=== PATIENT | female | born 1945 | race Caucasian/White ===

== ENCOUNTER 2016-11-11 16:52 | Emergency (ER) | payer MEDICARE, OTHER ==
--- NOTE | 2016-11-11 17:15 | ED Physician Documentation ---
PD HPI LOWER EXT INJURY - Stated complaint Stated Complaint: L KNEE PX - History obtained from History obtained from: Patient - History of Present Illness PD HPI LOW EXT INJURY LOCATION: Left (She has a history of arthroscopy on the left knee previously for cartilaginous foreign bodies, that was maybe 10 years ago. Today she was getting up from the couch and suddenly had lateral joint line pain and is unable to flex the knee.) Review of Systems Constitutional: denies: Fever, Chills Cardiac: denies: Chest pain / pressure, Palpitations Respiratory: denies: Dyspnea, Cough PD PAST MEDICAL HISTORY - Past Medical History Cardiovascular: Hypertension, High cholesterol Respiratory: None Neuro: None Endocrine/Autoimmune: None Psych: Depression Musculoskeletal: None - Present Medications Home Medications: Ambulatory Orders Medication Instructions Recorded Confirmed Atorvastatin Calcium 20 mg PO DAILY #30 tablet 03/18/16 Atorvastatin [Lipitor] 20 mg 03/18/16 Bupropion HCl [Bupropion Xl] 150 mg 03/18/16 Bupropion HCl [Bupropion Xl] 150 mg PO DAILY #30 tab.er.24h 03/18/16 Cetirizine [ZyrTEC] 10 mg PO DAILY #30 tablet 03/18/16 FLUoxetine [PROzac] 20 mg PO DAILY #30 capsule 03/18/16 Fluticasone [Flonase] 1 sprays GENNY DAILY #0 bottle 03/18/16 Losartan/Hydrochlorothiazide 1 tab PO DAILY #30 tablet 03/18/16 [Losartan-Hctz 100-25 mg Tab] Naproxen 500 mg PO BID #30 tablet. 11/11/16 - Allergies Allergies/Adverse Reactions: Allergies Allergy/AdvReac Type Severity Reaction Status Date / Time No Known Drug Allergies Allergy Verified 03/18/16 12:33 PD ED PE NORMAL - Vitals Vital signs reviewed: Yes - General General: Alert and oriented X 3, No acute distress - Extremities Extremities: Other (Small effusion of the left knee, there is lateral joint line tenderness, she cannot flex the knee. Medial and lateral collateral ligaments seem normal.) - Neuro Neuro: Alert and oriented X 3, Normal speech - Psych Psych: Normal mood, Normal affect Results - Vitals Vitals: Vital Signs - 24 hr 11/11/16 11/11/16 17:13 19:10 Temperature 35.6 C L Heart Rate 73 65 Respiratory 17 16 Rate Blood Pressure 181/96 H 190/106 H O2 Saturation 96 100 Oxygen O2 Source Room air - Rads (name of study) L knee 4v Radiology: EMP read contemporaneously (Advanced L knee OA with moderate effusion and numerous loose bodies.), See rad report PD MEDICAL DECISION MAKING - ED course ED course: She has osteoarthritis and loose bodies which probably explain the inability to flex. She declined a knee brace. Will followup with orthopedics. Departure - Departure Disposition: Home, Self Care Clinical Impression: Left anterior knee pain, Loose body in joint determined by X-ray Condition: Good Record reviewed to determine appropriate education?: Yes Instructions: ED Knee Pain UKO Prescriptions: Naproxen 500 mg PO BID #30 tablet. Comments: Follow up with an orthopedist of your choosing. Return if worse. Your blood pressure was elevated today on check in to the emergency department. This does not mean that you have hypertension, it is a common phenomenon to check into the emergency department and have elevated blood pressure. I recommend that you see your primary care physician within the week to have it rechecked when you're feeling better. Discharge Date/Time: 11/11/16 19:15
--- NOTE | 2016-11-11 18:55 | XRAY Preliminary Report ---
Exam: XR Knee 4 View LT IMPRESSION: 1. Advanced left knee osteoarthritis with moderate knee effusion and numerous loose bodies throughout the joint. [facility] SITE ID: [id number]
--- NOTE | 2016-11-11 18:57 | XRAY Report ---
EXAM: Left Knee Radiography EXAM DATE: 11/11/2016 05:59 PM. CLINICAL HISTORY: Knee pain. COMPARISON: None. TECHNIQUE: 4 views. FINDINGS: Bones: Normal. No fractures or bone lesions. Joints: Tricompartmental osteophytes with medial compartment narrowing. Numerous ossific densities th roughout the joint space as well as a moderate knee effusion. Soft Tissues: Medial soft tissues surgical clips. IMPRESSION: 1. Advanced left knee osteoarthritis with moderate knee effusion and numerous loose bodies throughout the joint. TA Referring Provider Line: [phone] SITE ID: [id number]
[2016-11-11 19:23] VITALS: BP 190/106
== END 2016-11-11 19:15 | disposition home or self-care (01) ==
LOC: ED 16:52
DX: M25.562 Pain in left knee (principal); M23.42 Loose body in knee, left knee; M17.12 Unilateral primary osteoarthritis, left knee; I10 Essential (primary) hypertension
CPT/HCPCS: 99283

== ENCOUNTER 2018-07-27 14:01 | Emergency (ER) | payer MEDICARE ==
[2018-07-27 14:13] VITALS: BP 131/73
[2018-07-27] MEDS ORDERED: diphenhydrAMINE 25 MG CAPSULE PO STA (14:24)
--- NOTE | 2018-07-27 14:30 | ED Physician Documentation ---
History of Present Illness - Stated complaint Stated Complaint: ITCH/RASH OVER BODY - Chief complaint Chief Complaint: Wound - History obtained from History obtained from: Patient - History of Present Illness Timing: How many days ago (3) Pain level max: 6 Pain level now: 5 - Additonal information Additional information: Patient is a 72-year-old female who is 1 week status post a left knee replacement at [facility] in [place]. Has been on oxycodone since that time has developed a rash over her body. It is itchy. She does not have any respiratory difficulties. No changes in soaps or detergents. No new pets. She called her orthopedist who referred her to the emergency department for evaluation. She has not taken anything for the rash Review of Systems Constitutional: denies: Fever, Chills GI: denies: Vomiting Musculoskeletal: denies: Neck pain, Back pain Neurologic: denies: Headache PD PAST MEDICAL HISTORY - Past Medical History Cardiovascular: Hypertension, High cholesterol Respiratory: None Endocrine/Autoimmune: None Psych: Depression Musculoskeletal: None - Present Medications Home Medications: Ambulatory Orders Medication Instructions Recorded Confirmed Atorvastatin Calcium 20 mg PO DAILY #30 tablet 03/18/16 Atorvastatin [Lipitor] 20 mg 03/18/16 Bupropion HCl [Bupropion Xl] 150 mg 03/18/16 Bupropion HCl [Bupropion Xl] 150 mg PO DAILY #30 tab.er.24h 03/18/16 Cetirizine [ZyrTEC] 10 mg PO DAILY #30 tablet 03/18/16 FLUoxetine [PROzac] 20 mg PO DAILY #30 capsule 03/18/16 Fluticasone [Flonase] 1 sprays GENNY DAILY #0 bottle 03/18/16 Losartan/Hydrochlorothiazide 1 tab PO DAILY #30 tablet 03/18/16 [Losartan-Hctz 100-25 mg Tab] Naproxen 500 mg PO BID #30 tablet. 11/11/16 HYDROmorphone [Dilaudid] 2 mg PO Q4H PRN #20 tablet 07/27/18 - Allergies Allergies/Adverse Reactions: Allergies Allergy/AdvReac Type Severity Reaction Status Date / Time No Known Drug Allergies Allergy Verified 07/27/18 14:13 - Social History Does the pt smoke?: No Smoking Status: Never smoker PD ED PE NORMAL - Vitals Vital signs reviewed: Yes - General General: Alert and oriented X 3, No acute distress - HEENT HEENT: Moist mucous membranes - Neck Neck: Supple, no meningeal sign - Cardiac Cardiac: RRR - Respiratory Respiratory: No respiratory distress, Clear bilaterally - Derm Derm: Warm and dry - Extremities Extremities: Other (Diffuse macular papular exanthem over the entire body. 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 Discussed the case with her orthopedic surgeon who recommends changing her to hydromorphone. Will prescribe this for her and follow-up closely with her doctor. She will utilize Benadryl as needed for itching. P atient and family counseled regarding signs and symptoms for which I believe and urgent re-evaluation would be necessary. Patient with good understanding of and agreement to plan and is comfortable going home at this time This document was made in part using voice recognition software. While efforts are made to proofread this document, sound alike and grammatical errors may occur. Departure - Departure Disposition: 01 Home, Self Care Clinical Impression: Allergic reaction Qualifiers: Encounter type: initial encounter Qualified Code(s): T78.40XA - Allergy, unspecified, initial encounter Condition: Good Instructions: ED Drug React Allergic Follow-Up: Dianne Courtney MD [Primary Care Provider] - Within 1 week Prescriptions: HYDROmorphone [Dilaudid] 2 mg PO Q4H PRN #20 tablet PRN Reason: knee pain Comments: Stop this oxycodone as your appear to be having an allergic reaction to this. Discharge Date/Time: 07/27/18 15:32
== END 2018-07-27 15:32 | disposition home or self-care (01) ==
LOC: ED 14:01
DX: T78.40XA Allergy, unspecified, initial encounter (principal); Z96.652 Presence of left artificial knee joint; I10 Essential (primary) hypertension
CPT/HCPCS: 99283; A9270

== ENCOUNTER 2018-11-20 00:07 | Emergency (ER) | payer MEDICARE ==
--- NOTE | 2018-11-20 00:29 | ED Physician Documentation ---
PD HPI Fall - Stated complaint Stated Complaint: LT ANKLE INJURY,BACK PAIN - Chief complaint Chief Complaint: Ext Problem - Additional information Additional information: 73-year-old female presents the emergency department after slipping and falling down several stairs. The patient reports striking her head and upper back and reports spasm and pain associated with this. The patient denies any acute neurologic changes or sensory changes. No urinary retention. No hematuria. The patient denies lower back pain. The patient denies torso trauma or upper extremity trauma. The patient does report left ankle pain. The patient denies hip or knee pain. Symptoms are described as moderate. No other associated symptoms. 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 : None HEENT: None Psych: Depression Musculoskeletal: None Derm: None - Past Surgical History Past Surgical History: Yes Ortho: Knee replacement - Present Medications Home Medications: Ambulatory Orders Medication Instructions Recorded Confirmed Atorvastatin Calcium 20 mg PO DAILY #30 tablet 03/18/16 Atorvastatin [Lipitor] 20 mg 03/18/16 Bupropion HCl [Bupropion Xl] 150 mg 03/18/16 Bupropion HCl [Bupropion Xl] 150 mg PO DAILY #30 tab.er.24h 03/18/16 Cetirizine [ZyrTEC] 10 mg PO DAILY #30 tablet 03/18/16 FLUoxetine [PROzac] 20 mg PO DAILY #30 capsule 03/18/16 Fluticasone [Flonase] 1 sprays GENNY DAILY #0 bottle 03/18/16 Losartan/Hydrochlorothiazide 1 tab PO DAILY #30 tablet 03/18/16 [Losartan-Hctz 100-25 mg Tab] Naproxen 500 mg PO BID #30 tablet. 11/11/16 HYDROmorphone [Dilaudid] 2 mg PO Q4H PRN #20 tablet 07/27/18 diazePAM [Valium] 5 mg PO TID PRN #15 tablet 11/20/18 - Allergies Allergies/Adverse Reactions: Allergies Allergy/AdvReac Type Severity Reaction Status Date / Time hydrocodone AdvReac Rash Verified 11/20/18 01:53 - Social History Does the pt smoke?: No Smoking Status: Never smoker Does the pt drink ETOH?: Yes Does the pt have substance abuse?: No - Immunizations Immunizations are current?: Yes - POLST Patient has POLST: No PD ED PE NORMAL - General General: Alert and oriented X 3, No acute distress - HEENT HEENT: PERRL, EOMI, Ears normal. No: Atraumatic (Tender palpation on the occiput/C1, no crepitus, no hematoma or laceration) - Neck Neck: No: No bony TTP (Tender palpation at C1 the base of the skull) - Respiratory Respiratory: No respiratory distress - Derm Derm: Other (Abrasion on the left distal lower leg, no laceration) - Extremities Extremities: No: No deformity, No tenderness to palpate, Normal ROM s pain (The patient has tenderness to palpation of the left ankle with mild swelling. The patient has no tenderness of the upper extremities and no tenderness of the other joints of the lower extremities. The patient has normal pulses and normal cap refill.) - Neuro Neuro: Alert and oriented X 3, Normal speech - Psych Psych: Normal affect Results - Vitals Vitals: Vital Signs - 24 hr 11/20/18 11/20/18 11/20/18 00:19 00:28 00:47 Temperature 36.7 C Heart Rate 66 Respiratory 17 17 16 Rate Blood Pressure 172/91 H O2 Saturation 96 11/20/18 11/20/18 01:53 02:25 Temperature Heart Rate 71 Respiratory 16 17 Rate Blood Pressure 143/82 H O2 Saturation 99 Oxygen O2 Source Room air - Rads (name of study) CT head/neck Radiology: Final report received, See rad report CT T-spine Radiology: Final report received, See rad report XR ankle Radiology: Final report received, See rad report PD MEDICAL DECISION MAKING - ED course ED course: On reevaluation the patient is resting comfortably, I discussed with her the findings on her workup. I discussed with her the plan for outpatient management. The patient declined crutches and would prefer to use the walker that she has at home. The patient will follow up with orthopedics and will return to the emergency department for any worsening or any concerns. Departure - Departure Disposition: 01 Home, Self Care Clinical Impression: Closed head injury Qualifiers: Encounter type: initial encounter Qualified Code(s): S09.90XA - Unspecified injury of head, initial encounter Contusion, back Qualifiers: Encounter type: initial encounter Laterality: unspecified laterality Qualified Code(s): S20.229A - Contusion of unspecified back wall of thorax, initial en counter Closed fibular fracture Qualifiers: Encounter type: initial encounter Fibula location: distal Fracture morphology: unspecified fracture morphology Laterality: unspecified laterality Qualified Code(s): S82.839A - Other fracture of upper and lower end of unspecified fibula, initial encounter for closed fracture Condition: Good Instructions: ED Contusion Back, ED Head Injury Closed, ED Fx Ankle Lateral Malleolus Follow-Up: Dianne Courtney MD [Primary Care Provider] - Within 1 week [facility] [Provider Group] - Within 1 week (Call to schedule an appointment ) Prescriptions: diazePAM [Valium] 5 mg PO TID PRN #15 tablet PRN Reason: Spasms Comments: Please return to the emergency department for worsening symptoms or any concerns
--- NOTE | 2018-11-20 01:34 | XRAY Report ---
Reason: swelling/pain L ankle Procedure Date: 11/20/2018 Accession Number: [id number] / [id number] Procedure: XR - Ankle 3 View LT CPT Code: FULL RESULT: EXAM: LEFT ANKLE RADIOGRAPHY EXAM DATE: 11/20/2018 01:17 AM. CLINICAL HISTORY: Swelling/pain L ankle. COMPARISON: None. TECHNIQUE: 3 views. FINDINGS: Bones: Acute oblique nondisplaced fracture of the distal fibula at the level of the ankle joint. Joints: No subluxations. Soft Tissues: Soft tissue swelling IMPRESSION: Acute distal fibula fracture. [facility]
--- NOTE | 2018-11-20 01:42 | CT Report ---
Reason: fall, injury Procedure Date: 11/20/2018 Accession Number: [id number] / [id number] Procedure: CT - CERVICAL SPINE WO CPT Code: FULL RESULT: EXAM: CT CERVICAL SPINE WITHOUT CONTRAST DATE: 11/20/2018 01:26 AM. HISTORY: Fall, injury. COMPARISONS: None. TECHNIQUE: Thin-section axial images were acquired of the cervical spine without contrast. Post-processing: Coronal and sagittal reformats. Other: None. In accordance with CT protocol optimization, one or more of the following dose reduction techniques were utilized for this exam: automated exposure control, adjustment of mA and/or KV based on patient size, or use of iterative reconstructive technique. FINDINGS: Alignment: There is relative straightening of the cervical spine. Bones: There are no fractures nor subluxations. There is cervical spondylosis with degeneration of the disks C4-C7. There are small marginal osteophytes. There is no significant bony canal stenosis nor severe bony foraminal stenosis. There are degenerative changes at the facets of the cervical spine. Musculature: The soft tissues of the neck are grossly unremarkable. There is a nodule or cyst in the right lobe of the thyroid. This measures 6 mm. Other: The paravertebral and prevertebral soft tissues are unremarkable. The lung apices are clear. IMPRESSION: 1. Cervical spondylosis. 2. No evidence for fractures nor subluxations. [facility]
--- NOTE | 2018-11-20 01:47 | CT Report ---
Reason: back pain, fall Procedure Date: 11/20/2018 Accession Number: [id number] / [id number] Procedure: CT - THORACIC SPINE WO CPT Code: FULL RESULT: EXAM: CT THORACIC SPINE WITHOUT CONTRAST EXAM DATE: 11/20/2018 01:21 AM. CLINICAL HISTORY: Back pain, fall. COMPARISONS: None. TECHNIQUE: Thin-section axial images were acquired of the thoracic spine from C7 to L1 without contrast. Post-processing: Coronal and sagittal reformats. Other: None. In accordance with CT protocol optimization, one or more of the following dose reduction techniques were utilized for this exam: automated exposure control, adjustment of mA and/or KV based on patient size, or use of iterative reconstructive technique. FINDINGS: Alignment: There is mild thoracic kyphosis. Bones: There are no fractures nor subluxations of the thoracic spine. There are anteriorly bridging osteophytes from T7-T11. There is no significant bony canal stenosis. Musculature: Normal. No fatty atrophy. Other: Incidental note is made of a right posterior protrusion at the L2-L3 level. IMPRESSION: 1. No evidence for acute fractures or subluxations of the thoracic spine. 2. Anterior bridging osteophytes from T7-T11. 3. Probable right posterolateral disk protrusion L2-L3. [facility]
--- NOTE | 2018-11-20 01:49 | CT Report ---
Reason: fall, head injury Procedure Date: 11/20/2018 Accession Number: [id number] / [id number] Procedure: CT - HEAD WO CPT Code: FULL RESULT: EXAM: CT HEAD EXAM DATE: 11/20/2018 01:19 AM. CLINICAL HISTORY: Fall, head injury. COMPARISON: None. TECHNIQUE: Multiaxial CT images were obtained from the foramen magnum to the vertex. Reformats: Sagittal and coronal. IV contrast: None. In accordance with CT protocol optimization, one or more of the following dose reduction techniques were utilized for this exam: automated exposure control, adjustment of mA and/or KV based on patient size, or use of iterative reconstructive technique. FINDINGS: Parenchyma: No intraparenchymal hemorrhage. No evidence of mass, midline shift, or CT findings of infarction. Barraza-white differentiation is distinct. There is mild chronic microvascular change in the cerebral white matter bilaterally. Extraaxial Spaces: Normal for age. No subdural or epidural collections identified. Ventricles: Normal in size and position. Sinuses and Orbits: Imaged paranasal sinuses, orbits, and mastoids show no significant abnormality. Bones: No evidence of fracture or calvarial defect. Other: None. IMPRESSION: 1. No acute intracranial abnormality. 2. No skull fracture. [facility]
[2018-11-20] MEDS ORDERED: ACETAMINOPHEN 500 MG TABLET PO STA (02:02)
[2018-11-20] MEDS ORDERED: diazePAM 5 MG TABLET PO STA (02:02)
[2018-11-20] MEDS ORDERED: NAPROXEN 250 MG TABLET PO STA (02:02)
[2018-11-20 02:31] VITALS: BP 143/82
== END 2018-11-20 02:31 | disposition home or self-care (01) ==
LOC: ED 00:07
DX: S82.832A Other fracture of upper and lower end of left fibula, initial encounter for closed fracture (principal); S20.229A Contusion of unspecified back wall of thorax, initial encounter; S09.90XA Unspecified injury of head, initial encounter; W10.9XXA Fall (on) (from) unspecified stairs and steps, initial encounter; I10 Essential (primary) hypertension
CPT/HCPCS: 70450; 72125; 72128; 73610; 99283; A9270

== ENCOUNTER 2022-07-02 17:48 | Emergency (ER) | payer MEDICARE ==
[2022-07-02 18:06] VITALS: BP 135/92
[2022-07-02 18:16] LABS: BASOPHILS % (AUTO) 0.6 %; EOSINOPHILS # (AUTO) 0.3 10^3/uL (0.0-0.7); EOSINOPHILS % (AUTO) 5.3 %; HCT - HEMATOCRIT 37.1 % (37.0-47.0); HGB - HEMOGLOBIN 12.3 g/dL (12.0-16.0); LYMPHOCYTES # (AUTO) 1.4 10^3/uL (1.5-3.5); LYMPHOCYTES % (AUTO) 22.6 %; MEAN CORPUSCULAR HEMOGLOBIN 28.1 pg (27.0-31.0); MEAN CORPUSCULAR HGB CONC 33.2 g/dL (32.0-36.0); MEAN CORPUSCULAR VOLUME 84.9 fL (81.0-99.0); MEAN PLATELET VOLUME 11.3 fL (7.9-10.8); MONOCYTES # (AUTO) 0.6 10^3/uL (0.0-1.0); MONOCYTES % (AUTO) 9.4 %; NEUTROPHILS # (AUTO) 3.9 10^3/uL (1.5-6.6); NEUTROPHILS % (AUTO) 61.9 %; PLT - PLATELET COUNT 232 10^3/uL (130-450); RED BLOOD COUNT 4.37 10^6/uL (4.20-5.40); WHITE BLOOD COUNT 6.3 x10^3/uL (4.8-10.8)
--- NOTE | 2022-07-02 18:20 | ED Physician Documentation ---
History of Present Illness - Stated complaint Stated Complaint: IRREGULAR HB/SHAKY - Chief complaint Chief Complaint: Cardiac - Additonal information Additional information: 76-year-old female presents emergency department for evaluation of palpitations and tachycardia. She does have a history of paroxysmal A. fib. This is happened historically in the past 5-6 times where she develops a rapid heart rate. She was alerted by her heart watch monitor. She did have a sensation of a flutter in her chest. She also felt shaky. She states that the symptoms usually last only a few minutes or less than an hour but the symptoms persisted for about 4 hours therefore she came to the ER. By the time that she presented here she has now converted to sinus rhythm and has no further symptomatology. She denies that she was having any chest pain or shortness of air. No fainting symptoms or feeling lightheaded. Patient is a non-smoker. She does not use a CPAP machine. Has a history of hypertension and hyperlipidemia for which she takes her medications. Meds: Losartan, amlodipine, atorvastatin Review of Systems Constitutional: reports: Reviewed and negative Nose: reports: Reviewed and negative Throat: reports: Reviewed and negative Cardiac: reports: Palpitations. denies: Pedal edema, Calf pain Respiratory: reports: Reviewed and negative GI: reports: Reviewed and negative : reports: Reviewed and negative Skin: reports: Reviewed and negative PD PAST MEDICAL HISTORY - Past Medical History Cardiovascular: Hypertension, High cholesterol Respiratory: None Neuro: None Endocrine/Autoimmune: None GI: None PATIENT SERVICE COORDINATOR: None : None HEENT: None Psych: Depression Musculoskeletal: None Derm: None - Past Surgical History Past Surgical History: Yes Ortho: Knee replacement - Present Medications Home Medications: Ambulatory Orders Medication Instructions Recorded Confirmed Atorvastatin Calcium 20 mg PO DAILY #30 tablet 03/18/16 Atorvastatin [Lipitor] 20 mg 03/18/16 Cetirizine [ZyrTEC] 10 mg PO DAILY #30 tablet 03/18/16 FLUoxetine [PROzac] 20 mg PO DAILY #30 capsule 03/18/16 Fluticasone [Flonase] 1 sprays GENNY DAILY #0 bottle 03/18/16 Losartan/Hydrochlorothiazide 1 tab PO DAILY #30 tablet 03/18/16 [Losartan-Hctz 100-25 mg Tab] buPROPion HCL [Bupropion Xl] 150 mg 03/18/16 buPROPion HCL [Bupropion Xl] 150 mg PO DAILY #30 tab.er.24h 03/18/16 Naproxen 500 mg PO BID #30 tablet. 11/11/16 HYDROmorphone [Dilaudid] 2 mg PO Q4H PRN #20 tablet 07/27/18 diazePAM [Valium] 5 mg PO TID PRN #15 tablet 11/20/18 - Allergies Allergies/Adverse Reactions: Allergies Allergy/AdvReac Type Severity Reaction Status Date / Time hydrocodone AdvReac Rash Verified 07/02/22 18:51 - Social History Does the pt smoke?: No Smoking Status: Never smoker Does the pt drink ETOH?: Yes Does the pt have substance abuse?: No - Immunizations Immunizations are current?: Yes - POLST Patient has POLST: No PD ED PE NORMAL - General General: Alert and oriented X 3, No acute distress - HEENT HEENT: PERRL - Cardiac Cardiac: RRR, No murmur, Strong equal pulses, Other (Normal sinus rhythm on the monitor heart rate of 78) - Respiratory Respiratory: No respiratory distress - Abdomen Abdomen: Normal bowel sounds, Soft, Non tender - Back Back: No CVA TTP, No spinal TTP - Derm Derm: Normal color, Warm and dry, No rash - Extremities Extremities: No deformity, No tenderness to palpate, Normal ROM s pain - Neuro Neuro: Alert and oriented X 3, doctor of podiatry 2-12 intact Eye Opening: Spontaneous Motor: Obeys Commands Verbal: Oriented GCS Score: 15 Results - Vitals Vitals: Vital Signs - 24 hr 07/02/22 17:53 Temperature 36.3 C L Heart Rate 70 Respiratory 20 Rate Blood Pressure 135/92 H O2 Saturation 100 Oxygen O2 Source Room air - EKG (time done) 1755 Rate: Rate (enter#) (84) Rhythm: NSR [place]: Normal Intervals: Normal [place]. No: Prolonged QT QRS: Normal Ischemia: Normal ST segments, Q waves (V1 V2) Compare to prior EKG: Old EKG unavailable Computer interpretation: Agree with computer - Labs Labs: Laboratory Tests 07/02/22 07/02/22 07/02/22 18:08 18:08 18:08 WBC 6.3 RBC 4.37 Hgb 12.3 Hct 37.1 MCV 84.9 MCH 28.1 MCHC 33.2 RDW 15.0 Plt Count 232 MPV 11.3 H Neut # (Auto) 3.9 Lymph # (Auto) 1.4 L [place] # (Auto) 0.6 Eos # (Auto) 0.3 Baso # (Auto) 0.0 Absolute Nucleated RBC 0.00 Nucleated RBC % 0.0 Sodium 137 Potassium 4.0 Chloride 103 Carbon Dioxide 26 Anion Gap 8.0 BUN 22 H Creatinine 0.7 Estimated GFR (MDRD) 82 L Glucose 115 H Calcium 9.5 Total Bilirubin 0.4 AST 27 ALT 33 Alkaline Phosphatase 69 Troponin I High Sens 6.0 B-Natriuretic Peptide Total Protein 7.1 Albumin 4.3 Globulin 2.8 Albumin/Globulin Ratio 1.5 Lipase 35 TSH 07/02/22 07/02/22 18:08 18:08 WBC RBC Hgb Hct MCV MCH MCHC RDW Plt Count MPV Neut # (Auto) Lymph # (Auto) [place] # (Auto) Eos # (Auto) Baso # (Auto) Absolute Nucleated RBC Nucleated RBC % Sodium Potassium Chloride Carbon Dioxide Anion Gap BUN Creatinine Estimated GFR (MDRD) Glucose Calcium Total Bilirubin AST ALT Alkaline Phosphatase Troponin I High Sens B-Natriuretic Peptide 31 Total Protein Albumin Globulin Albumin/Globulin Ratio Lipase TSH 2.95 - Rads (name of study) cxr Radiology: Final report received (No acute cardiopulmonary process) PD MEDICAL DECISION MAKING - ED course Complexity details: reviewed results, re-evaluated patient, considered differential, d/w patient ED course: 76-year-old female presents emergency department for evaluation of heart palpitations and heart flutter. She has a history of paroxysmal A. fib. She noticed palpitations and her heart monitor issued her heart rate alarm registering about 150 bpm. The symptoms lasted for about 4 hours and when they did not dissipate on their own she comes here however on the drive to the hospital she found that the palpitations went away and on presentation she is in normal sinus rhythm. Here in the emergency department while obtaining labs that she has been on a monitor with no ectopy noted. Her CBC electrolytes and troponin are all essentially normal. Chest x-ray is without acute focal opacity. She appears to have paroxysmal atrial fibrillation. She has never been evaluated by avionics repair technician however and I am making the recommendation for referral to 1 to be seen for a Holter monitor and/or other appropriate testing. Emergent return precautions were discussed for worsening symptoms Departure - Departure Disposition: Home, Self Care Clinical Impression: Paroxysmal atrial fibrillation Condition: Stable Record reviewed to determine appropriate education?: Yes Instructions: Atrial Fibrillation Dc Comments: Lisa you are seen today in the emergency department because you intermittently go into atrial fibrillation. It sounds like you were in it for a little more than 4 hours this afternoon. However by the time you are presented to the emergency department you had converted to sinus rhythm. In the long-term it is important you discuss this ED visit with your primary care doctor. You would benefit from referral to a avionics repair technician. They could consider further outpatient testing such as an echocardiogram, a Holter monitor or other testing. You can continue to take your usual blood pressure medications as you are already prescribed. If at any point you develop sudden severe chest pain, have shortness of air, or have a return of the rapid heart rate that does not dissipate as you would typically expect it to then please return immediately to the ER
[2022-07-02 18:33] LABS: ALBUMIN 4.3 g/dL (3.2-5.5); ALBUMIN/GLOBULIN RATIO 1.5 (1.0-2.2); BILIRUBIN,TOTAL 0.4 mg/dL (0.2-1.0); CALCIUM 9.5 mg/dL (8.5-10.3); CREATININE 0.7 mg/dL (0.4-1.0); TOTAL PROTEIN 7.1 g/dL (6.7-8.2)
--- NOTE | 2022-07-02 18:49 | XRAY Report ---
PROCEDURE: Chest 1 View X-Ray INDICATIONS: Chest Pain TECHNIQUE: Two view(s) of the chest. COMPARISON: None. FINDINGS: Surgical changes and devices: None. Lungs and pleura: No pleural effusions or pneumothorax. Lungs are clear. Mediastinum: Mediastinal contours are normal. Heart size is normal. Bones and chest wall: No suspicious bony abnormalities. Soft tissues appear unremarkable. IMPRESSION: No acute cardiopulmonary process demonstrated radiographically. Reviewed by: Jayy Mendoza MD on 07/02/2022 6:48 PM PDT Approved by: Jayy Mendoza MD on 07/02/2022 6:48 PM PDT Station ID: [id number]
== END 2022-07-02 19:11 | disposition home or self-care (01) ==
LOC: ED 17:48
DX: I48.0 Paroxysmal atrial fibrillation (principal)
CPT/HCPCS: 36415; 80053; 83690; 83880; 84443; 84484; 85025; 93005; 99284

== ENCOUNTER 2023-01-12 19:27 | Emergency (ER) | payer MEDICARE ==
--- OUTSIDE RECORDS SUMMARY | 2023-01-12 19:42 | EXTERNAL MEDICAL SUMMARY RPT | Continuity of Care Document ---
:1945 Author Organization [facility] Address [address] [place] [address] Phone Care Team Providers Name Role Phone Unavailable Unavailable Unavailable Stretalhael Patient Registrar, Ella Unavailable Unav ailable Luisa Rn, Radha Unavailable Unavailable Allergies No information. Encounters No information. Functional Status No information. Immunizations No information. Medications date description facility 2023-01-07 00:00 cholecalciferol (vitamin d3) Walk-In [facility] 2023-01-12 00:00 cholecalciferol (vitamin d3) Walk-In [facility] 2023-01-07 00:00 amlodipine [facility] 2023-01-12 00:00 amlodipine [facility] 2023-01-07 00:00 cholecalciferol (vitamin d3) Walk-In [facility] Care [facility] Anc[facility] Services [facility] 2023-01-12 00:00 cholecalciferol (vitamin d3) Walk-In [facility] 2023-01-07 00:00 vitamin e [facility] 2023-01-12 00:00 vitamin e [facility] 2023-01-07 00:00 amlodipine [facility] 2023-01-12 00:00 amlodipine [facility] 2023-01-07 00:00 vitamin e [facility] 2023-01-12 00:00 vitamin e [facility] 2023-01-07 00:00 amlodipine [facility] 2023-01-12 00:00 amlodipine [facility] 2023-01-07 00:00 losartan [facility] 2023-01-12 00:00 losartan [facility] 2023-01-07 00:00 losartan [facility] 2023-01-12 00:00 losartan [facility] 2023-01-07 00:00 atorvastatin [facility] 2023-01-12 00:00 atorvastatin [facility] 2023-01-07 00:00 atorvastatin [facility] 2023-01-12 00:00 atorvastatin [facility] 2023-01-07 00:00 losartan [facility] 2023-01-12 00:00 losartan [facility] 2023-01-07 00:00 atorvastatin [facility] 2023-01-12 00:00 atorvastatin [facility] 2023-01-07 00:00 atorvastatin [facility] 2023-01-12 00:00 atorvastatin [facility] 2023-01-07 00:00 losartan [facility] 2023-01-12 00:00 losartan [facility] 2023-01-07 00:00 cholecalciferol (vitamin d3) [facility] 2023-01-12 00:00 cholecalciferol (vitamin d3) [facility]-In [facility] 2023-01-07 00:00 amlodipine [facility] 2023-01-12 00:00 amlodipine [facility] 2023-01-07 00:00 atorvastatin [facility] 2023-01-12 00:00 atorvastatin [facility] 2023-01-07 00:00 atorvastatin [facility] 2023-01-12 00:00 atorvastatin [facility] 2023-01-07 00:00 atorvastatin [facility] 2023-01-12 00:00 atorvastatin [facility] 2023-01-07 00:00 atorvastatin [facility] 2023-01-12 00:00 atorvastatin [facility] 2023-01-07 00:00 losartan [facility] 2023-01-12 00:00 losartan [facility] 2023-01-07 00:00 losartan [facility] 2023-01-12 00:00 losartan [facility] 2023-01-07 00:00 cholecalciferol (vitamin d3) Walk-In [facility] Janice yoder 2023-01-12 00:00 cholecalciferol (vitamin d3) Walk-In [facility] 2023-01-07 00:00 vitamin e [facility] 2023-01-12 00:00 vitamin e [facility] 2023-01-07 00:00 vitamin e [facility] 2023-01-12 00:00 vitamin e [facility] 2023-01-07 00:00 losartan [facility] 2023-01-12 00:00 losartan Walk[facility] 2023-01-07 00:00 losartan [facility] 2023-01-12 00:00 losartan [facility] 2023-01-07 00:00 vitamin [id number] [facility] 2023-01-12 00:00 vitamin [id number] [facility] Problems date description facility 2023-01-07 00:00 Acute pharyngitis [facility] 2023-01-07 00:00 Acute pharyngitis, unspecified [facility] Procedures date description facility 2023-01-07 00:00 Visit Code Hold [facility] [place] 2023-01-07 00:00 Visit Code Hold [facility] [place] 2023-01-07 00:00 Throat Culture Walk[facility] [place] 2023-01-07 00:00 POC STREP TEST Walk[facility] [place] 2023-01-07 00:00 POC STREP TEST Walk[facility] [place] Results/Labs test date author facility value unit interpret ation Result panel 1 (unknown) (no date) (unknown) Walk-In (no value) (units (unk nown) Clinic Primary unknown) [facility] [place] Social History date description facility 2023-01-07 00:00 Former smoker [facility] [place] Vital Signs date measurement value units 2023-01-07 00:00 BMI 34.07 kg/m2 2023-01-07 00:00 BP_diastolic 97 mmHg 2023-01-07 00:00 BP_systolic 184 mmHg 2023-01-07 00:00 heart_rate 60 /min 2023-01-07 00:00 height_metric 171.45 cm 2023-01-07 00:00 height_standard 67.5 in 2023-01-07 00:00 respiration_rate 16 /min 2023-01-07 00:00 temperature_metric 36.56 C 2023-01-07 00:00 temperature_standard 97.8 F 2023-01-07 00:00 weight_metric 99.79 kg 2023-01-07 00:00 weight_standard 220 lb
[2023-01-12] MEDS ORDERED: MORPHINE 2 MG/ML CARPUJECT IVP STA (20:25)
[2023-01-12] MEDS ORDERED: ONDANSETRON 4 MG/2 ML VIAL IVP STA (20:25)
[2023-01-12 20:49] LABS: BASOPHILS % (AUTO) 0.5 %; EOSINOPHILS # (AUTO) 0.4 10^3/uL (0.0-0.7); EOSINOPHILS % (AUTO) 5.3 %; HCT - HEMATOCRIT 39.8 % (37.0-47.0); HGB - HEMOGLOBIN 12.7 g/dL (12.0-16.0); LYMPHOCYTES # (AUTO) 1.1 10^3/uL (1.5-3.5); LYMPHOCYTES % (AUTO) 14.3 %; MEAN CORPUSCULAR HEMOGLOBIN 27.9 pg (27.0-31.0); MEAN CORPUSCULAR HGB CONC 31.9 g/dL (32.0-36.0); MEAN CORPUSCULAR VOLUME 87.3 fL (81.0-99.0); MEAN PLATELET VOLUME 11.2 fL (7.9-10.8); MONOCYTES # (AUTO) 0.7 10^3/uL (0.0-1.0); MONOCYTES % (AUTO) 8.7 %; NEUTROPHILS # (AUTO) 5.7 10^3/uL (1.5-6.6); NEUTROPHILS % (AUTO) 70.9 %; PLT - PLATELET COUNT 219 10^3/uL (130-450); RED BLOOD COUNT 4.56 10^6/uL (4.20-5.40); RED CELL DISTRIBUTION WIDTH 15.9 % (12.0-15.0)
[2023-01-12 21:06] LABS: ALBUMIN 4.1 g/dL (3.2-5.5); ALBUMIN/GLOBULIN RATIO 1.4 (1.0-2.2); BILIRUBIN,TOTAL 0.5 mg/dL (0.2-1.0); CREATININE 0.7 mg/dL (0.4-1.0); POTASSIUM 3.6 mmol/L (3.5-5.0); TOTAL PROTEIN 7.1 g/dL (6.7-8.2)
[2023-01-12] MEDS ORDERED: SODIUM CHLORIDE 0.9% 1,000 ML IV STA (21:06)
--- NOTE | 2023-01-12 21:08 | XRAY Report ---
PROCEDURE: Chest 1 View X-Ray INDICATIONS: CP TECHNIQUE: One view of the chest was acquired. COMPARISON: CXR 07/02/2022. FINDINGS: Surgical changes and devices: None. Lungs and pleura: No pleural effusions or pneumothorax. Lungs appear clear. Mediastinum: Mediastinal contours appear normal. Heart size is normal. Bones and chest wall: No suspicious bony lesions. Overlying soft tissues appear unremarkable. IMPRESSION: No acute cardiopulmonary abnormality identified. Reviewed by: Eduardo Mazariegos MD on 01/12/2023 9:06 PM PDT Approved by: Eduardo Mazariegos MD on 01/12/2023 9:06 PM PDT Station ID: [id number]
--- NOTE | 2023-01-12 21:12 | ED Physician Documentation ---
PD HPI CHEST PAIN - Stated complaint Stated Complaint: PAINFUL TO BREATH - Chief complaint Chief Complaint: Resp - History obtained from History obtained from: Patient - Additional information Additional information: Patient is a 77-year-old presenting for evaluation of left-sided chest pain that is worse with taking a deep breath since 8:00 this morning.Patient reports that the pain has been constant. Nothing else makes it worse. She reports planting an 8 foot 4 x 4 beam yesterday into concrete I did feel some discomfort in her back earlier today which was relieved with massage and heating pad.She denies recent illness with fever, cough or congestion. The pain does not radiate elsewhere.She spoke to the [facility] advice line and they recommended she try Aleve which did not help her symptoms and also recommended she come into the emergency department to "rule out pleurisy". She denies a history of "known coronary artery disease. She does take medications for hypertension and hyperlipidem ia.She denies a history of PE or DVT. She denies recent travel or immobilization, leg pain or swelling. 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 : None HEENT: None Psych: Depression Musculoskeletal: None Derm: None - Past Surgical History Past Surgical History: Yes Ortho: Knee replacement - Present Medications Home Medications: Ambulatory Orders Medication Instructions Recorded Confirmed Atorvastatin Calcium 20 mg PO DAILY #30 tablet 03/18/16 Atorvastatin [Lipitor] 20 mg 03/18/16 Cetirizine [ZyrTEC] 10 mg PO DAILY #30 tablet 03/18/16 FLUoxetine [PROzac] 20 mg PO DAILY #30 capsule 03/18/16 Fluticasone [Flonase] 1 sprays GENNY DAILY #0 bottle 03/18/16 Losartan/Hydrochlorothiazide 1 tab PO DAILY #30 tablet 03/18/16 [Losartan-Hctz 100-25 mg Tab] buPROPion HCL [Bupropion Xl] 150 mg 03/18/16 buPROPion HCL [Bupropion Xl] 150 mg PO DAILY #30 tab.er.24h 03/18/16 Naproxen 500 mg PO BID #30 tablet. 11/11/16 HYDROmorphone [Dilaudid] 2 mg PO Q4H PRN #20 tablet 07/27/18 diazePAM [Valium] 5 mg PO TID PRN #15 tablet 11/20/18 Apixaban [Eliquis] 10 mg ORAL BID 30 Days #74 tablet 01/12/23 Oxycodone HCl/Acetaminophen 1 each PO Q6H PRN #14 tablet 01/12/23 [Percocet 5-325 mg Tablet] - Allergies Allergies/Adverse Reactions: Allergies Allergy/AdvReac Type Severity Reaction Status Date / Time hydrocodone AdvReac Rash Verified 01/12/23 19:32 - Social History Does the pt smoke?: No Smoking Status: Never smoker Does the pt drink ETOH?: Yes Does the pt have substance abuse?: No - Immunizations Immunizations are current?: Yes - POLST Patient has POLST: No PD ED PE NORMAL - General General: Alert and oriented X 3, No acute distress, Well developed/nourished - HEENT HEENT: Atraumatic - Neck Neck: Supple, no meningeal sign - Cardiac Cardiac: RRR, No murmur - Respiratory Respiratory: No respiratory distress, Clear bilaterally - Abdomen Abdomen: Soft, Non tender - Derm Derm: Warm and dry - Extremities Extremities: No edema, No calf tenderness / cord Results - Vitals Vitals: Vital Signs - 24 hr 01/12/23 01/12/23 01/12/23 19:32 21:35 22:56 Temperature 36.5 C Heart Rate 100 84 76 Respiratory 16 20 18 Rate Blood Pressure 180/90 H 174/82 H 165/84 H O2 Saturation 96 95 93 Oxygen O2 Source Room air - EKG (time done) 2012 EKG releavant findings:: EKG personally interpreted by author of this note. Relevant findings are: Rate 83, normal sinus rhythm, QTc 433, no ST depressions, no STEMI Rate: Rate (enter#) (83) Rhythm: NSR Intervals: No: Prolonged QT Ischemia: No: ST elevation c/w ischemia - Labs Labs: Laboratory Tests 01/12/23 01/12/23 01/12/23 20:41 20:41 20:41 WBC 8.0 RBC 4.56 Hgb 12.7 Hct 39.8 MCV 87.3 MCH 27.9 MCHC 31.9 L RDW 15.9 H Plt Count 219 MPV 11.2 H Neut # (Auto) 5.7 Lymph # (Auto) 1.1 L Traverse # (Auto) 0.7 Eos # (Auto) 0.4 Baso # (Auto) 0.0 Absolute Nucleated RBC 0.00 Nucleated RBC % 0.0 D-Dimer 394.4 H Sodium 134 L Potassium 3.6 Chloride 99 L Carbon Dioxide 26 Anion Gap 9.0 BUN 18 Creatinine 0.7 Estimated GFR (MDRD) 81 L Glucose 200 H Calcium 9.0 Total Bilirubin 0.5 AST 26 ALT 30 Alkaline Phosphatase 77 Troponin I High Sens Total Protein 7.1 Albumin 4.1 Globulin 3.0 Albumin/Globulin Ratio 1.4 Lipase 32 01/12/23 20:41 WBC RBC Hgb Hct MCV MCH MCHC RDW Plt Count MPV Neut # (Auto) Lymph # (Auto) Traverse # (Auto) Eos # (Auto) Baso # (Auto) Absolute Nucleated RBC Nucleated RBC % D-Dimer Sodium Potassium Chloride Carbon Dioxide Anion Gap BUN Creatinine Estimated GFR (MDRD) Glucose Calcium Total Bilirubin AST ALT Alkaline Phosphatase Troponin I High Sens 4.5 Total Protein Albumin Globulin Albumin/Globulin Ratio Lipase PD Medical Decision Making - ED course Complexity details: reviewed results, re-evaluated patient, d/w patient, d/w family (daughter at bedside) ED course: Patient is a 77-year-old female presenting for evaluation of left-sided chest pain that is worse with taking a breath since this morning. Her EKG is reviewed and without signs of acute ischemia.Labs were obtained including a CBC, chemistries, troponin and D-dimer. D-dimer is elevated even with age adjustment. Her chest x-ray is unremarkable which I also reviewed. A CT angio was obtained which demonstrates bilateral Subsegmental emboli. There is no signs of heart strain. She also has a right upper lobe pulmonary nodule. I reviewed these findings with the patient and the daughter including the finding of the pulmonary nodule requiring follow-up.Patient's troponin is normal in the setting of pain for greater than 6 hours. I do not think she has ACS.She is low risk based on her PESI score and appropriate for outpatient management. We discussed the risks and benefits of anticoagulation and the patient is agreeable to initiating treatment on Eliquis. She has [facility] and is able to get close follow-up.She did require IV morphine for her chest pain with improvement. She was also given a small amount of narcotic pain medication for the pain. She is counseled on need for close follow-up as well as concerning symptoms to return for. PESI Score 76 points Class II, Low Risk: 1.7-3.5% 30-day mortality in this group. Departure - Departure Disposition: 01 Home, Self Care Clinical Impression: Pulmonary embolism, Pulmonary nodule, Pleuritic chest pain Condition: Stable Instructions: Embolism Pulmonary, ED Nodule Solitary Pulmonary Follow-Up: Dianne Courtney MD [Primary Care Provider] - Prescriptions: Apixaban [Eliquis] 10 mg ORAL BID 30 Days #74 tablet Oxycodone HCl/Acetaminophen [Percocet 5-325 mg Tablet] 1 each PO Q6H PRN #14 tablet PRN Reason: pain Comments: You were found to have blood clots in both lungs. Fortunately it does not appear to be putting strain on your heart. We have started you on a blood thinner called Eliquis.I have also sent a prescription for pain medication. These prescriptions were sent to [facility] in [place]. You also have a pulmonary nodule seen on your CT scan but needs close follow-up with your primary care doctor.It would likely need to be followed to ensure that it is not growing and becoming concerning for a cancerous lesion. Your blood sugar was found to be elevated at 200. Please call your primary care doctor tomorrow to arrange for close follow-up for all the above.You do need to take the blood thinner as prescribed. For the first week your dose will be 10 mg twice a day. It will then reduce to 5 mg twice a day. Please return to the emergency department if you develop any worsening symptoms such as increased shortness of breath, worsening pain, blood in your stools or any new concerns. I am prescribing a short course of narcotic pain medication for you. These are potentially dangerous and addictive medications that should be used carefully. These medications may constipate you. Take an [id number] stool softener (docusate) twice daily with plenty of water while taking these medications. If you go 24 hours without a bowel movement, take [id number] miralax, per package instructions. Do not drink or drive while taking these medications. If you received narcotic or sedating medications while in the emergency department, do not drive for 24 hours. Store this medication in a safe, secure place and out of reach of children. It is a violation of federal law to give or sell this medication to another person or to use in a manner other than prescribed. The ED will not refill narcotic prescriptions, including prescriptions lost or stolen. To dispose of unwanted medications: 1. [facility] at [address] in [place] has a medication drop box. They accept prescription medications (in pill form) Monday through Monday 9:00 a.m. to 5:00 p.m. 2. [facility] accepts prescription medications (in pill form only) for disposal year round. Call for more information. 3. Contact the [facility] for the next [facility] sponsored prescription drug collection event. , [phone], or [phone]; Note that many narcotic pain relievers also contain Tylenol/acetaminophen. Please ensure that your total dose of acetaminophen from all sources does not exceed 3 g (3000 mg) per day. CT SCAN IMPRESSION: 1. Positive for pulmonary bilateral subsegmental emboli. No right heart strain. 2. Right upper lobe pulmonary nodule measuring 0.6 cm, (6/140). 3. Suspect bibasilar atelectasis. Results were communicated to Dr. Ireland at 01/12/2023 10:12 PM PDT. Discharge Date/Time: 01/12/23 22:57
[2023-01-12] MEDS ORDERED: iohexoL-300 100 ML VIAL ONE (21:21)
[2023-01-12] MEDS ORDERED: iohexoL-300 100 ML VIAL IVP ONE (21:56)
--- NOTE | 2023-01-12 22:13 | CT Report ---
PROCEDURE: ANGIO CHEST W/WO INDICATIONS: pleuritic L sided CP CONTRAST: 80mL Omni 300 TECHNIQUE: After the administration of intravenous contrast, 2 mm axial images were acquired from the pulmonary apices to the posterior costophrenic angles during the arterial phase. In addition, 1 mm lung kernel and 5 mm soft tissue kernel reconstructions were performed. 3-dimensional coronal oblique maximum int ensity projection (MIP) reformats, 8 mm axial MIP, and 5 mm coronal and sagittal MPR reformats were t hen performed through the thorax. For radiation dose reduction, the following was used: automated exp osure control, adjustment of mA and/or kV according to patient size. COMPARISON: None. FINDINGS: Image quality: Excellent. Large vessels: Right and left subsegmental pulmonary emboli, (5/88, 81). No central pulmonary embolis m. RV LV ratio 0.74. Lungs and pleura: No pleural effusions. No pneumothorax. Right upper lobe juxta minor fissure pulmon edilia nodule measuring 0.6 cm, (6/140). Streaky opacity at the left lung base and lingula. Bilateral de pendent opacity. These are most consistent with atelectasis. Mediastinum: Heart size is normal. Moderate coronary artery calcifications. No pericardial effusions. No mediastinal adenopathy by size criteria. Chest wall and lower neck: Thyroid is unremarkable. Small left thyroid calcification. No axillary or supraclavicular adenopathy by size. Bones: No aggressive osseous abnormality. Upper Abdomen: Unremarkable. IMPRESSION: 1. Positive for pulmonary bilateral subsegmental emboli. No right heart strain. 2. Right upper lobe pulmonary nodule measuring 0.6 cm, (6/140). 3. Suspect bibasilar atelectasis. Results were communicated to Dr. Ireland at 01/12/2023 10:12 PM PDT. Reviewed by: Eduardo Mazariegos MD on 01/12/2023 10:12 PM PDT Approved by: Eduardo Mazariegos MD on 01/12/2023 10:12 PM PDT Station ID: [id number]
[2023-01-12] MEDS ORDERED: APIXABAN 5 MG TABLET PO STA (22:32)
[2023-01-12] MEDS ORDERED: oxyCODONE/ACET 5/325 Prepack 4 PO STA (22:32)
[2023-01-12 22:57] VITALS: BP 165/84
== END 2023-01-12 22:57 | disposition home or self-care (01) ==
LOC: ED 19:27
DX: I26.99 Other pulmonary embolism without acute cor pulmonale (principal); R91.1 Solitary pulmonary nodule; R07.81 Pleurodynia
CPT/HCPCS: 36415; 71045; 71275; 80053; 83690; 84484; 85025; 85379; 93005; 96374; 99284; 99285; A9270; Q9967

== ENCOUNTER 2023-06-14 07:00 | Outpatient (CLI) | payer MEDICARE ==
--- NOTE | 2023-06-14 16:33 | XRAY Report ---
PROCEDURE: Hip w/Pelvis 2-3V LT INDICATIONS: LEFT HIP PAIN TECHNIQUE: AP pelvis with lateral view(s) of the left hip(s). COMPARISON: None. FINDINGS: Bones: No fractures or dislocations. No suspicious bony lesions. Mild bilateral hip joint space n arrowing and spurring. Soft tissues: Rounded coarse calcification projects over the pelvis. IMPRESSION: No acute bony abnormality. If there remains a high clinical concern for fracture, consider cross-sect ional imaging now. If pain persists, consider repeat x-ray in 10-14 days or cross-sectional imaging. Degenerative changes of both hips. Nonspecific rounded coarse calcification projects over the pelvis, could represent a uterine fibroid but is nonspecific. Further imaging could be obtained if clinically indicated, for example pelvic ult rasound or CT. Reviewed by: Laron William MD on 06/14/2023 4:32 PM PDT Approved by: Laron William MD on 06/14/2023 4:32 PM PDT Station ID: [id number]
== END 2023-06-14 23:59 | disposition home or self-care (01) ==
LOC: DI.S 07:00
PROVIDERS: ATTEND Physician Assistant
DX: M16.0 Bilateral primary osteoarthritis of hip (principal); R93.5 Abnormal findings on diagnostic imaging of other abdominal regions, including retroperitoneum

== ENCOUNTER 2024-03-10 23:04 | Outpatient (CLI) | payer MEDICARE | END 2024-03-10 23:59 | disposition EMS.NT | LOC: EMS 23:04 | DX: Z03.89 Encounter for observation for other suspected diseases and conditions ruled out (principal) ==